=== PATIENT | male | born 1995 | race Caucasian/White ===

== ENCOUNTER → 2022-07-20 07:47 | Outpatient (CLI) | payer OTHER, SELFPAY ==
--- NOTE | 2022-07-20 | DI.US.S_ITS ---
PROCEDURE: US ABDOMEN LIMITED INDICATIONS: CHRONIC RIGHT UPPER QUADRANT PAIN TECHNIQUE: Real-time scanning was performed of the abdominal and retroperitoneal organs, with image documentation. COMPARISON: None. FINDINGS: Liver: There is a hyperechoic focus within the right hepatic lobe posteriorly measuring roughly 5 mm, suggestive of a hemangioma. Gallbladder: Is within normal limits Biliary ducts: Intrahepatic bile ducts are non-dilated. Extrahepatic bile duct caliber measures 3 mm. Normal is 6-7 mm or less in diameter, or 10 mm or less post-cholecystectomy. Pancreas: Visualized portions of the pancreas are sonographically normal. IMPRESSION: 1. Probable small right hepatic lobe hemangioma. 2. No acute process. Dictated by: Savanna Alonzo M.D. on 07/20/2022 at 10:32 Transcribed by: GUILLE on 07/20/2022 at 10:33 Approved by: Savanna Alonzo M.D. on 07/20/2022 at 15:31
== END ==
PROVIDERS: PCP Family Medicine Sports Medicine; Referring Provider Family Medicine Sports Medicine; Visit Provider Family Medicine Sports Medicine
DX: R10.11 Right upper quadrant pain (principal); G89.29 Other chronic pain
CPT/HCPCS: 76705

== ENCOUNTER → 2023-05-12 07:06 | Outpatient (CLI) | payer OTHER, SELFPAY ==
--- NOTE | 2023-05-12 | DI.US.S_ITS ---
PROCEDURE: US ABDOMEN LIMITED INDICATIONS: EVALUATE FOR HERINA / RT MID UPPER ABD PAIN TECHNIQUE: Real-time scanning was performed of the abdominal and retroperitoneal organs, with image documentation. COMPARISON: [facility], , US ABDOMEN LIMITED, 07/20/2022, 8:02. FINDINGS: No hernia is identified in the area of palpable abnormality in the region of concern in the right mid-upper abdomen. The visualized liver has a normal appearance. IMPRESSION: No hernia identified in the area of concern. Dictated by: Reed Cortez M.D. on 05/12/2023 at 9:32 Approved by: Reed Cortez M.D. on 05/12/2023 at 9:34
== END ==
PROVIDERS: PCP Family Medicine Sports Medicine; Referring Provider Family Medicine Sports Medicine; Visit Provider Family Medicine Sports Medicine
DX: R10.11 Right upper quadrant pain (principal)
CPT/HCPCS: 76705